=== PATIENT | male | born 1950 ===

== ENCOUNTER → 2022-09-18 15:28 | Outpatient (CLI) | payer MEDICARE, OTHER, SELFPAY ==
--- NOTE | 2022-09-18 | DI.MRI.S_ITS ---
PROCEDURE: MR BRAIN (IAC) WWO CON INDICATIONS: SUDDEN HEARING LOSS VERTIGO TECHNIQUE: Noncontrast sagittal T1 spin echo, axial FLAIR, axial gradient echo, axial diffusion and ADC through the brain. Axial thin-slice 3D CISS, coronal TruFISP, axial T1 spin echo with fat saturation through the internal auditory canals. After the administration of contrast, thin slice axial and coronal T1 spin echo with fat saturation through the internal auditory canals, and axial and coronal and sagittal T1 spin echo with fat saturation through the brain. COMPARISON: None. FINDINGS: Image quality: Excellent. Cerebellopontine angles: No cerebellopontine angle masses. Inner ear structures appear normally formed. No suspicious enhancement in the internal auditory canal or along the course of the 7th cranial nerve. CSF spaces: Ventricles are normal in size and shape. An arachnoid cyst can be seen involving the posterior aspect of the posterior fossa. Basal cisterns are patent. Brain: No intracranial bleeds or mass effects. Simms-white matter interface is intact. No abnormal intracranial enhancement. Diffusion weighted images demonstrate no acute ischemic insults. Remote infarction with volume loss and encephalomalacia can be seen involving the lateral aspect the left cerebellum. Brainstem appears normal. Normal intravascular flow voids are present. Symmetric calcification can be seen involving the basal ganglia, which is considered to be normal for age. Skull and face: Calvarial marrow signal is normal. Orbits appear normal. Sinuses: Sinuses and mastoids are clear. IMPRESSION: No significant abnormality is seen. Specifically, no masses or abnormal enhancement are seen within the cerebellopontine angle cisterns or within the internal auditory canals. 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 on 09/18/2022 at 17:27 Approved by: Anshu Roland M.D. on 09/18/2022 at 17:29
== END ==
PROVIDERS: Referring Provider Physician Assistant; Visit Provider Physician Assistant
DX: G23.8 Other specified degenerative diseases of basal ganglia (principal); H91.20 Sudden idiopathic hearing loss, unspecified ear; G93.0 Cerebral cysts; G93.89 Other specified disorders of brain; R42 Dizziness and giddiness; Z86.73 Personal history of transient ischemic attack (TIA), and cerebral infarction without residual deficits
CPT/HCPCS: 70553; A9579